=== PATIENT | male | born 1970 | race Caucasian/White ===

== ENCOUNTER 2018-06-22 09:26 | Outpatient (CLI) | payer BC, SELFPAY ==
[2018-06-22 10:11] LABS: Absolute Basophil Count 0.02 k/cumm (0.0-0.2); Absolute Eosinophil Count 0.11 k/cumm (0.0-0.7); Absolute Lymphocyte Count 0.39 k/cumm (1.2-3.4); Absolute Neutrophil Count 3.46 k/cumm (1.2-6.7); Basophils % 0.4; Eosinophils % 2.5; HCT 38.4 % (40.0-50.0); HGB 12.4 g/dL (13.5-17.5); Lymphocytes % 8.7; Mean Corp. HGB Concentration 32.3 g/dL (32.0-36.0); Mean Corpuscular Hemoglobin 28.5 pg (27.0-33.0); Mean Corpuscular Volume 88.3 fL (80-95); Mean Platelet Volume 10.1 fL (8.0-11.0); Monocytes % 11.2; Neutrophils % 77.2; Platelet Count 247 x1000/uL (130-400); RBC 4.35 m/cumm (4.50-6.00); RBC Distribution Width 12.6 % (11.8-14.1); White Blood Cell Count 4.48 k/cumm (4.4-10.8)
== END 2018-06-22 09:46 ==
PROVIDERS: PCP Family Medicine; Visit Provider Psychiatry & Neurology Neurology
DX: G35 Multiple sclerosis (principal)
CPT/HCPCS: 36415; 85025

== ENCOUNTER 2019-03-16 00:31 | Outpatient (CLI) | payer BC, SELFPAY ==
--- NOTE | 2019-03-16 13:44 | DI.MRI_ITS ---
SYMPTOMS/DIAGNOSIS: MULTIPLE SCLEROSIS, CLINICALLY STABLE, G35 MRI OF THE BRAIN: Pre and post contrast examination was performed. Comparison is 02/19/17. There are again seen multiple foci of hyperintense signal in the white matter on the T2 and FLAIR images. These are stable compared to the examination from 02/19/17. Following contrast administration, no enhancement is seen. The ventricles and sulci are consistent with the patient's age. The diffusion weighted images are unremarkable. The susceptibility images show no intracranial hemorrhage. Following contrast administration, no enhancing masses are seen. A normal flow void is seen in the wainwright of [place]. IMPRESSION: Stable white matter lesions compared to 02/19/17. No new or enhancing lesions are identified.
[2019-03-16] MEDS: Normal Saline Flush 10 ML SYR IVP (14:19)
[2019-03-16] MEDS: Gadoterate meglumine 20 ML VIAL 14 ML IVP (14:21)
== END 2019-03-16 00:51 ==
PROVIDERS: PCP Family Medicine; Visit Provider Psychiatry & Neurology Neurology
DX: G35 Multiple sclerosis (principal)
CPT/HCPCS: 70553

== ENCOUNTER 2019-03-31 09:36 | Outpatient (CLI) | payer BC, SELFPAY ==
[2019-03-31 10:01] LABS: Absolute Basophil Count 0.02 k/cumm (0.0-0.2); Absolute Eosinophil Count 0.13 k/cumm (0.0-0.7); Absolute Lymphocyte Count 0.36 k/cumm (1.2-3.4); Absolute Monocyte Count 0.39 k/cumm (0.11-0.7); Absolute Neutrophil Count 2.43 k/cumm (1.2-6.7); Basophils % 0.6; Eosinophils % 3.9; HCT 40.2 % (40.0-50.0); HGB 13.2 g/dL (13.5-17.5); Lymphocytes % 10.8; Mean Corp. HGB Concentration 32.8 g/dL (32.0-36.0); Mean Corpuscular Hemoglobin 28.7 pg (27.0-33.0); Mean Corpuscular Volume 87.4 fL (80-95); Mean Platelet Volume 9.7 fL (8.0-11.0); Monocytes % 11.7; Platelet Count 240 x1000/uL (130-400); White Blood Cell Count 3.33 k/cumm (4.4-10.8)
[2019-03-31 10:53] LABS: ALT 25 U/L (12-78); AST 13 U/L (15-37); Albumin 4.1 g/dL (3.4-5.0); Alkaline Phosphatase 43 U/L (46-116); Anion Gap 6.7 mmol/L (3-11); BUN 18 mg/dL (7-18); Bilirubin, Total 0.3 mg/dL (0.2-1.0); CO2 29.3 mmol/L (21.0-32.0); CREATININE 1.06 mg/dL (0.70-1.30); Chloride 104 mmol/L (98-107); Glucose 109 mg/dL (70-100); Potassium 4.3 mmol/L (3.5-5.1); Sodium 140 mmol/L (136-145)
[2019-04-01 04:41] LABS: Vitamin D 25 Total 70.5 ng/ml (30-100)
[2019-04-04 02:59] LABS: JC Virus DNA, QN <500 copies/mL
== END 2019-03-31 09:56 ==
PROVIDERS: PCP Family Medicine; Visit Provider Psychiatry & Neurology Neurology
DX: G35 Multiple sclerosis (principal)
CPT/HCPCS: 36415; 80053; 82306; 87799; 85025

== ENCOUNTER 2020-04-07 01:20 | Outpatient (CLI) | payer BC, SELFPAY ==
[2020-04-07 10:13] LABS: Abs Immature Grans 0.01 10^3/uL (0.0-0.06); Absolute Basophil Count 0.05 10^3/uL (0.0-0.2); Absolute Eosinophil Count 0.29 10^3/uL (0.0-0.7); Absolute Lymphocyte Count 0.42 10^3/uL (1.2-3.4); Absolute Monocyte Count 0.54 10^3/uL (0.1-0.8); Basophils % 1.3; Eosinophils % 7.4; HCT 40.1 % (40.0-50.0); HGB 13.2 g/dL (13.5-17.5); Immature Grans % 0.3; Lymphocytes % 10.7; MCH 28.6 pg (27.0-33.0); MCHC 32.9 % (32.0-36.0); MCV 86.8 fL (80-95); MPV 9.8 fL (8.0-11.0); Monocytes % 13.7; Neutrophils % 66.6; Nucleated RBC 0 %; Platelet Count 244 10^3/uL (130-400); RBC 4.62 10^6/uL (4.36-5.78); RDW 12.6 % (11.8-14.1); RDW-SD 39.7 fL; WBC 3.94 10^3/uL (4.4-10.8)
[2020-04-07 10:15] LABS: Absolute Neutrophil Count 2.62 10^3/uL (1.2-6.7)
[2020-04-07 11:15] LABS: ALT 25 U/L (16-63); AST 19 U/L (15-37); Albumin 4.1 g/dL (3.4-5.0); Alkaline Phosphatase 55 U/L (46-116); Anion Gap 8.6 mmol/L (3-11); BUN 20 mg/dL (7-18); Bilirubin, Total 0.5 mg/dL (0.2-1.0); CO2 28.4 mmol/L (21.0-32.0); CREATININE 0.94 mg/dL (0.70-1.30); Calcium 9.2 mg/dL (8.5-10.1); Chloride 100 mmol/L (98-107); Glucose 93 mg/dL (74-106); Potassium 4.5 mmol/L (3.5-5.1); Sodium 137 mmol/L (136-145); Total Protein 7.2 g/dL (6.4-8.2)
[2020-04-13 17:56] LABS: JC Virus DNA, QN <500 copies/mL; Source PLASMA
== END 2020-04-07 01:40 ==
PROVIDERS: PCP Family Medicine; Visit Provider Psychiatry & Neurology Neurology
DX: G35 Multiple sclerosis (principal)
CPT/HCPCS: 36415; 80053; 87799; 85025

== ENCOUNTER 2021-05-11 02:38 | Outpatient (CLI) | payer BC, SELFPAY ==
[2021-05-11 15:09] LABS: Abs Immature Grans 0.01 10^3/uL (0.0-0.06); Absolute Basophil Count 0.03 10^3/uL (0.0-0.2); Absolute Eosinophil Count 0.18 10^3/uL (0.0-0.7); Absolute Lymphocyte Count 0.43 10^3/uL (1.2-3.4); Absolute Monocyte Count 0.39 10^3/uL (0.1-0.8); Absolute Neutrophil Count 2.65 10^3/uL (1.2-6.7); Basophils % 0.8; Eosinophils % 4.9; HGB 12.2 g/dL (13.5-17.5); Immature Grans % 0.3; Lymphocytes % 11.7; MCH 28.6 pg (27.0-33.0); MCHC 32.1 % (32.0-36.0); Monocytes % 10.6; Neutrophils % 71.7; Nucleated RBC 0 %; Platelet Count 240 10^3/uL (130-400); RBC 4.27 10^6/uL (4.36-5.78); RDW 12.4 % (11.8-14.1); RDW-SD 40.6 fL; WBC 3.69 10^3/uL (4.4-10.8)
[2021-05-11 15:57] LABS: ALT 24 U/L (16-63); AST 13 U/L (15-37); Albumin 4.1 g/dL (3.4-5.0); Alkaline Phosphatase 54 U/L (46-116); Anion Gap 5.9 mmol/L (3-11); BUN 17 mg/dL (7-18); Bilirubin, Total 0.4 mg/dL (0.2-1.0); CO2 31.1 mmol/L (21.0-32.0); CREATININE 1.1 mg/dL (0.70-1.30); Calcium 9.2 mg/dL (8.5-10.1); Chloride 104 mmol/L (98-107); Glucose 101 mg/dL (74-106); Potassium 4.6 mmol/L (3.5-5.1); Sodium 141 mmol/L (136-145); Total Protein 7.1 g/dL (6.4-8.2)
[2021-05-16 13:24] LABS: JC Virus DNA, QN <500 copies/mL; Source PLASMA
== END 2021-05-11 02:39 | disposition home or self-care (01) ==
LOC: LBO 02:38
PROVIDERS: PCP Family Medicine; Visit Provider Psychiatry & Neurology Neurology
DX: G35 Multiple sclerosis (principal); R53.83 Other fatigue
CPT/HCPCS: 36415; 80053; 87799; 85025

== ENCOUNTER 2021-05-11 03:45 | Outpatient (CLI) | payer BC, SELFPAY ==
--- NOTE | 2021-05-11 15:40 | DI.MRI_ITS ---
Exam(s) MR BRAIN WO EXAM: MR BRAIN WO CLINICAL HISTORY: MS; clinical stable, G35 TECHNIQUE: Multiplanar multisequence MRI of the brain was performed. COMPARISON: MR MRI - BRAIN W/WO CONTRAST from 02/19/2017 FINDINGS: VENTRICLES AND EXTRA AXIAL SPACES: Normal in size and morphology for the patient's age. MIDLINE SHIFT: None. CEREBRAL PARENCHYMA: No focus of restricted diffusion to suggest acute infarct. No space-occupying le johny identified. Overall the white matter lesions seen on the FLAIR and T2 weighted images appears st able compared to 03/16/2019. There does appear to be some increase in size a lesion in the left front al lobe (series 7001, image 17). There also appears to be increase in size of a lesion in the right parietal lobe (series 7001, image 16). There is a hyperintense focus seen in the inferior jo ann which is unchanged compared to an examination from 02/19/2017. HEMORRHAGE: None. BRAINSTEM/CEREBELLUM: Normal. CALVARIUM: Normal. VISUALIZED PARANASAL SINUSES/MASTOIDS:Clear. [place]: Normal flow void. PITUITARY GLAND: Unremarkable. OTHER FINDINGS: None. IMPRESSION: Hyperintense white matter lesions consistent with the patient's known history of multiple sclerosis. A question of slight interval increase in size of lesions in the left frontal and right parietal lob e as described. DATA REPOSITORY:
== END 2021-05-11 04:05 ==
PROVIDERS: PCP Family Medicine; Visit Provider Psychiatry & Neurology Neurology
DX: G35 Multiple sclerosis (principal)
CPT/HCPCS: 70551

== ENCOUNTER → 2022-03-26 02:35 | Outpatient (CLI) | payer BC, SELFPAY ==
--- NOTE | 2022-03-26 15:02 | DI.MRI_ITS ---
Exam(s) MR BRAIN WO EXAM: MR BRAIN WO CLINICAL HISTORY: MS; clinically stable,g35 TECHNIQUE: Multiplanar multisequence MRI of the brain was performed. COMPARISON: MR MR BRAIN WO from 05/11/2021 FINDINGS: VENTRICLES AND EXTRA AXIAL SPACES: Normal in size and morphology for the patient's age. MIDLINE SHIFT: None. CEREBRAL PARENCHYMA: Numerous high signal foci in the white matter some which are in a periventricula r location consistent patient's history of multiple sclerosis. There has been no significant change in size of the lesions appear no new definite new lesions are seen. No focus of restricted diffusion to suggest acute infarct. No space-occupying lesion identified. HEMORRHAGE: None. BRAINSTEM/CEREBELLUM: Stable small focus of high signal in the inferior jo ann. VISUALIZED PARANASAL SINUSES/MASTOIDS:Clear. [place]: Normal flow void. PITUITARY GLAND: Unremarkable. OTHER FINDINGS: None. IMPRESSION: Stable high foci signal in the white matter of both cerebral hemispheres as well as is inferior jo ann, consistent with the patient's history of multiple sclerosis. DATA REPOSITORY:
== END ==
PROVIDERS: PCP Family Medicine; Visit Provider Psychiatry & Neurology Neurology
DX: G35 Multiple sclerosis (principal)
CPT/HCPCS: 70551

== ENCOUNTER 2022-03-26 03:38 | Outpatient (CLI) | payer BC, SELFPAY ==
[2022-03-26 13:48] LABS: Absolute Basophil Count 0.03 10^3/uL (0.0-0.2); Absolute Lymphocyte Count 0.58 10^3/uL (1.2-3.4); Absolute Monocyte Count 0.43 10^3/uL (0.1-0.8); Absolute Neutrophil Count 3.38 10^3/uL (1.2-6.7); Basophils % 0.6; Eosinophils % 4.3; HCT 39.8 % (40.0-50.0); HGB 12.7 g/dL (13.5-17.5); Lymphocytes % 12.6; MCH 28.5 pg (27.0-33.0); MCHC 31.9 % (32.0-36.0); MCV 89 fL (80-95); MPV 9.9 fL (8.0-11.0); Monocytes % 9.3; Neutrophils % 73.2; Platelet Count 225 10^3/uL (130-400); RBC 4.46 10^6/uL (4.36-5.78); RDW 12.5 % (11.8-14.1); RDW-SD 41.1 fL; WBC 4.62 10^3/uL (4.4-10.8)
[2022-03-26 14:25] LABS: ALT 17 U/L (16-63); AST 12 U/L (15-37); Alkaline Phosphatase 47 U/L (46-116); Anion Gap 5.8 mmol/L (3-11); BUN 16 mg/dL (7-18); Bilirubin, Total 0.3 mg/dL (0.2-1.0); CO2 32.2 mmol/L (21.0-32.0); CREATININE 1.1 mg/dL (0.70-1.30); Chloride 106 mmol/L (98-107); Glucose 100 mg/dL (74-106); Potassium 4.5 mmol/L (3.5-5.1); Sodium 144 mmol/L (136-145); Total Protein 7.3 g/dL (6.4-8.2)
[2022-04-03 14:57] LABS: JC Virus DNA, QN PCR See Comments
[2022-04-04 14:18] LABS: Source Plasma
[2022-04-04 14:20] LABS: JC Virus DNA, QN PCR See Comments
== END 2022-03-26 03:39 | disposition home or self-care (01) ==
LOC: LBO 03:38
PROVIDERS: PCP Family Medicine; Visit Provider Psychiatry & Neurology Neurology
DX: G35 Multiple sclerosis (principal)
CPT/HCPCS: 36415; 80053; 87799; 85025

== ENCOUNTER 2022-12-25 15:19 | Outpatient (REF) | payer BC, SELFPAY ==
[2022-12-25 15:40] LABS: Hemoglobin A1C 5.3 % (<5.7)
[2022-12-25 16:02] LABS: Calculated LDL 93 mg/dL (<100); Cholesterol 175 mg/dL (<200); Ferritin 340 ng/mL (26-388); HDL Cholesterol 64 mg/dL (40-60); Triglyceride 91 mg/dL (<150); Vitamin B12 326 pg/mL (193-986)
[2022-12-25 16:38] LABS: Iron 97 ug/dL (65-175); Total Iron Binding Capacity 305 ug/dL (250-450); Transferrin Sat 32 % (20-55)
[2022-12-27 09:42] LABS: Hepatitis C Ab w Rflx HCV PCR Negative (Negative)
[2022-12-27 09:44] LABS: HIV-1/2 Ag & Ab Screen Negative (Negative)
== END 2022-12-25 15:20 | disposition home or self-care (01) ==
LOC: NCHCN 15:19
PROVIDERS: PCP Family Medicine; Visit Provider Family Medicine
DX: Z00.00 Encounter for general adult medical examination without abnormal findings (principal); D64.9 Anemia, unspecified; Z13.1 Encounter for screening for diabetes mellitus; Z13.220 Encounter for screening for lipoid disorders; Z13.21 Encounter for screening for nutritional disorder; Z11.4 Encounter for screening for human immunodeficiency virus [HIV]; Z11.59 Encounter for screening for other viral diseases
CPT/HCPCS: 80061; 86803; 87389; 82607; 82728; 83036; 83540; 83550

== ENCOUNTER 2023-03-21 08:15 | Outpatient (CLI) | payer BC, SELFPAY ==
[2023-03-21 08:37] LABS: Abs Immature Grans 0.01 10^3/uL (0.0-0.06); Absolute Basophil Count 0.03 10^3/uL (0.0-0.2); Absolute Eosinophil Count 0.18 10^3/uL (0.0-0.7); Absolute Lymphocyte Count 0.46 10^3/uL (1.2-3.4); Absolute Monocyte Count 0.38 10^3/uL (0.1-0.8); Absolute Neutrophil Count 2.74 10^3/uL (1.2-6.7); Basophils % 0.8; Eosinophils % 4.7; HCT 39.7 % (40.0-50.0); HGB 12.9 g/dL (13.5-17.5); Immature Grans % 0.3; Lymphocytes % 12.1; MCH 28.7 pg (27.0-33.0); MCHC 32.5 % (32.0-36.0); MCV 88 fL (80-95); MPV 9.4 fL (8.0-11.0); Neutrophils % 72.1; Platelet Count 230 10^3/uL (130-400); RDW 12.5 % (11.8-14.1); RDW-SD 40.5 fL
[2023-03-21 09:00] LABS: ALT 19 U/L (16-63); AST 12 U/L (15-37); Alkaline Phosphatase 49 U/L (46-116); Anion Gap 5.6 mmol/L (3-11); BUN 14 mg/dL (7-18); Bilirubin, Total 0.4 mg/dL (0.2-1.0); CO2 31.4 mmol/L (21.0-32.0); CREATININE 1.2 mg/dL (0.70-1.30); Calcium 9.1 mg/dL (8.5-10.1); Chloride 103 mmol/L (98-107); Estimated GFR 73.22 (mL/min/1.73m2); Glucose 91 mg/dL (74-106); Potassium 4.2 mmol/L (3.5-5.1); Sodium 140 mmol/L (136-145); Total Protein 7.4 g/dL (6.4-8.2)
[2023-03-21 10:26] LABS: Vitamin D 25 Total 58.6 ng/mL (30-100)
[2023-03-27 03:10] LABS: JC Virus DNA, QN PCR NOT DETECTED; JC Virus DNA, QN PCR NOT DETECTED Log IU/mL; Source PLASMA
== END 2023-03-21 08:16 | disposition home or self-care (01) ==
LOC: LBO 08:16
PROVIDERS: PCP Family Medicine; Visit Provider Psychiatry & Neurology Neurology
DX: G35 Multiple sclerosis (principal); N20.0 Calculus of kidney
CPT/HCPCS: 36415; 80053; 82306; 87799; 85025

== ENCOUNTER 2024-01-05 11:32 | Outpatient (REF) | payer BC, SELFPAY ==
[2024-01-05 15:25] LABS: Abs Immature Grans 0.01 10^3/uL (0.0-0.06); Absolute Basophil Count 0.04 10^3/uL (0.0-0.2); Absolute Eosinophil Count 0.17 10^3/uL (0.0-0.7); Absolute Lymphocyte Count 0.46 10^3/uL (1.2-3.4); Absolute Monocyte Count 0.44 10^3/uL (0.1-0.8); Absolute Neutrophil Count 3.97 10^3/uL (1.2-6.7); Basophils % 0.8 %; Eosinophils % 3.3 %; HCT 39.2 % (40.0-50.0); Immature Grans % 0.2 %; MCHC 33.2 % (32.0-36.0); MCV 87 fL (80-95); MPV 10.5 fL (8.0-11.0); Monocytes % 8.6 %; Neutrophils % 78.1 %; Platelet Count 267 10^3/uL (130-400); RBC 4.49 10^6/uL (4.36-5.78); RDW 12.2 % (11.8-14.1); RDW-SD 39.1 fL; WBC 5.09 10^3/uL (4.4-10.8)
[2024-01-05 15:51] LABS: Anion Gap 6.1 mmol/L (3-11); BUN 17 mg/dL (7-18); CO2 29.9 mmol/L (21.0-32.0); CREATININE 1.1 mg/dL (0.70-1.30); Calcium 8.9 mg/dL (8.5-10.1); Chloride 107 mmol/L (98-107); Estimated GFR 80.77 (mL/min/1.73m2); Glucose 99 mg/dL (74-106); Magnesium 1.8 mg/dL (1.8-2.4); Potassium 4.6 mmol/L (3.5-5.1); Sodium 143 mmol/L (136-145); TSH 1.36 uIU/Ml (0.36-3.74)
== END 2024-01-05 11:33 | disposition home or self-care (01) ==
LOC: NCHCN 11:32
PROVIDERS: PCP Family Medicine; Visit Provider Student in an Organized Health Care Education/Training Program
DX: I10 Essential (primary) hypertension (principal)
CPT/HCPCS: 80048; 83735; 84443; 85025

== ENCOUNTER 2024-03-31 14:55 | Outpatient (CLI) | payer BC, SELFPAY ==
--- OUTSIDE RECORDS SUMMARY | 2024-03-31 14:58 | XMS_ITS | Encounter Summary ---
Author Organization [facility] Address [facility] [place] [address] Care Team Providers Care Sales Operations Specialist Name Role Phone Marisol Orona Miguel ROGERS Primary Care Provider Reason for Visit * Reason Comments Multiple Sclerosis Encounter Details Date Type Department Care Team (Late st Contact Info) Description 05/30/2011 9:30 AM EDT [place] [id number] Sreekanth Mauricio MD [facility] [place] [address] Multiple sclerosis (Primary Dx) Discharge Disposition: Home Social History Tobacco Use Types Packs/Day Years Used Date Smoking Tobacco: Never Smokeless Tobacco: Never Alcohol Use Standard Drinks/Week Comments No 0 (1 standard drink = 0.6 oz pur e alcohol) Sex and Gender Information Value Date Recorded Sex Assigned at Not on file Gender Identity Not on file Sexual Orientation Not on file documented as of this encounter Last Filed Vital Signs Vital Sign Reading Time Taken Comments Blood Pressure 143/80 05/30/2011 10:07 AM EDT Pulse 55 05/30/2011 10:07 AM EDT Temperature - - Respiratory Rate - - Oxygen Saturation - - Inhaled Oxygen Concentration - - Weight 117.9 kg (260 lb) 05/30/2011 10:07 AM EDT Height 172.7 cm (5' 8) 05/30/2011 10:07 AM EDT Body Mass Index 39.53 05/30/2011 10:07 AM EDT documented in this encounter Patient Instructions * Patient Instructions* Sreekanth Mauricio MD - 05/30/2011 11:23 AM EDT I think you are doing OK at present. However I do think you should be on treatment for MS and would urge you to do this KOURTNEY. I understand that is the our highest priority at present. You try neurontin for the itchint, one pill 3 times a day. I will see you backin 3 months documented in this encounter Progress Notes * Sreekanth Mauricio MD - 05/30/2011 11:20 AM EDT C:: Multiple sclerosis History: He presented with left visual blurring of vision in 2004 and was diagnosed with optic neuritisHe was found to have MRI abnormalities and was told that he had multiple sclerosis. He started Betaseron but had persistent flulike reactions which prompted sifting to Copaxone.He took Copaxone for 2 yearsbefore she is discontinuing due to injection fatigueLast relapse occurred in March 2010 with symptoms of double vision, dizziness and loss of balance. Restarted Copaxone in April 2010 bud id nottolerate it and is now of all medication. He feels his legs are a bit weaker in the last few months, no other symptoms. 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 He describes intermittent itching in the hands and feet that ocurrs a week at a time and almost sounds like an MS relapse. MEDICATIONS: AMBULATORY MEDICATIONS: In electronic record PHYSICAL EXAM: General: The patient appears well, not in distress. HEENT: [place] palpebral conjunctivae, anicteric sclerae, no tonsillo-pharyngeal congestion, supple neck, no cervical adenopathy. Cardiovascular: Heart rate is regular. No murmur, rub or gallops appreciated. Respiratory: Clear to auscultation. Abdomen: Soft, nontender. Extremities: No significant abnormalities, but left hand injury recently. Spine: No abnormality noted. Skin: Warm and moist to touch Mental Status: The patient is alert and oriented x 3. Speech is fluent without paraphasic errors orperseveration. Attention, concentration, and recall are all normal. Cranial Nerves II-XII: Visual faust are intact to confrontation. Pupils are equal, reactive to light and accommodation. Ocular movements are intact without nystagmus. Facial sensation is normal. Facial movements are symmetric. Gag reflex was not tested but uvula rises symmetrically. Sternocleidomastoid and trapezius muscle are 5/5 in strength. Tongue protrusion is midline. Motor: Patient has normal motor bulk and tone. Upper and lower extremity strength is 5/5 throughout, but left le LE seems weaker than the right, proximal and distal muscle groups. Sensation: Normal touch sensation. Coordination: Finger to nose finger testing is normal. Rapid alternating movements are normal. Gait: The patient has normal gait and able to tandem. Negative Romberg. DTR: 3+, 4+ ankles with clonus. No Babinski sign ASSESSMENT AND PLAN: Mr. Echavarria is a 39-year-old man with relapsing multiple sclerosis. His most recent relapse was in March 2010, but iasuspect the episodes of iching and the Left LE weakness and the brisk reflexes represent some worsening of his condition. His last MRI from April 2010 showed a lot of new lesions. I counseled him again regarding the need for immunomodulatory therapy and he is in agreement. Sincehe had a lot of injection reactions with both interferons and the tremor, and bad reactions to copaxone. it would be appropriate to use fingolimod. We discussed the benefits of fingolimod and its associated side effects. He would also be a candidate for the Daclizumab study protocol. However he is still reluctant to proceed because of concerns about . His is actively trying to get . I will see him back in 4 months. I recommended a trial of neurontin for the itching. documented in this encounter Plan of Treatment Not on file documented as of this encounter Visit Diagnoses Diagnosis Multiple sclerosis- Primary documented in this encounter Care Teams Sales Operations Specialist Relationship Specialty Start Date End Date Marisol Orona APRN [address] [place] [address] PCP - General 07/10/10 08/17/18 documented as of this encounter
--- OUTSIDE RECORDS SUMMARY | 2024-03-31 14:58 | XMS_ITS | Encounter Summary ---
[place] [address] Care Team Providers Care Fuel Tank Sealer And Tester Name Role Phone Edmundo Gillespie MD Primary Care Provider [phone] Reason for Referral * Consultation (Routine) - Authorized Specialty Diagnoses / Procedures Referred By Contfaviola t Referred To Contact Neurology Diagnoses Multiple sclerosis Sue Lundberg MD [facility] [address] [place] [address] [facility] [address] [place] [phone] Referral ID Status Reason Start Date Expiration Date Visits Requested Visits Authorized [id number] Authorized Second Opinion PCP Updated and/or Approved 09/26/2023 09/25/2024 6 6 Encounter Details Date Type Department Care Team (Late st Contact Info) Description 09/26/2023 Transcribe Orders eD Incoming Referrals [phone] Sue Lundberg MD [facility] [address] [place], [place] [id number] Multiple sclerosis Social History Tobacco Use Types Packs/Day Years Used Date Smoking Tobacco: Never Smokeless Tobacco: Never Alcohol Use Standard Drinks/Week Comments No 0 (1 standard drink = 0.6 oz pur e alcohol) Sex and Gender Information Value Date Recorded Sex Assigned at Not on file Gender Identity Not on file Sexual Orientation Not on file documented as of this encounter Plan of Treatment Scheduled Referrals Name Type Priority Associated Diagnoses Orde r Schedule Referral to Neurology Outpatient Referral Routine Multiple sclerosis Ordered: 09/26/2023 documented as of this encounter Visit Diagnoses Diagnosis Multiple sclerosis documented in this encounter Care Teams Fuel Tank Sealer And Tester Relationship Specialty Start Date End Date Edmundo Gillespie MD [address] [place] [address] PCP - General Family Medicine 09/26/23 documented as of this encounter
--- OUTSIDE RECORDS SUMMARY | 2024-03-31 14:58 | XMS_ITS | Encounter Summary ---
Author Organization [facility] [place] [address] Care Team Providers Care Room Service Food Server Name Role Phone Yeyo Marisol Rivera APRN Primary Care Provider Reason for Visit * Reason Comments Hand Pain finger laceration Encounter Details Date Type Department Care Team (Late st Contact Info) Description 05/18/2011 4:14 PM EDT - 05/18/2011 10:25 PM EDT [place] [address] Pj Saravia MD [facility] [place] [address] Laceration of finger; Open wound of finger(s) , without mention of complication Discharge Disposition: Home Social History Tobacco Use Types Packs/Day Years Used Date Smoking Tobacco: Never Assessed Sex and Gender Information Value Date Recorded Sex Assigned at Not on file Gender Identity Not on file Sexual Orientation Not on file documented as of this encounter Last Filed Vital Signs Vital Sign Reading Time Taken Comments Blood Pressure 141/79 05/18/2011 10:00 PM EDT Pulse 76 05/18/2011 10:00 PM EDT Temperature 36.8 ??C (98.2 ??F) 05/18/2011 10:00 PM E DT Respiratory Rate 20 05/18/2011 10:00 PM EDT Oxygen Saturation 98% 05/18/2011 10:00 PM EDT Inhaled Oxygen Concentration - - Weight - - Height - - Body Mass Index - - documented in this encounter Discharge Instructions * Patient Instructions* Jos Hernandez MD - 05/18/2011 9:41 PM EDT Orthopaedic Home Care Instructions Care of Your injury Below are general guidelines to follow after treatment. If you have any questions after reading this sheet, please call us. 1. INJURY: left index, middle, ring finger lacerations and fracture Activity Keep your cast/splint clean and dry. For the first 72 hours, keep your injured extremity raised as much as possible. You may sit in a chair or in bed with your injured extremity raised above the level of the heart (???toes above the nose?? for a leg injury). Use blankets and/or pillows to help. You may leave the bed or chair to use the bathroom or to eat. DO NOT allow the injured extremity to dangle or excessive swelling and pain will develop. No ice. Keep the dressing clean and dry, you may reinforce it with gauze if needed, there is no need to remove the dressing before your appointment. Days 4-7, you may increase activities but only do what is absolutely necessary! You will have less pain and swelling if you CONTINUE TO RAISE YOUR INJURED EXTREMITY. Too much activity will result in discomfort and swelling, and may slow healing. You will be much happier later if you follow activityrestrictions. Less is better for the first week! Weight-bearing status: no weight bearing with left hand 2. Prescriptions Adults You were given a prescription for dilaudid: take one - two tablets every 4 to 6 hours as needed. They can be constipating, so we recommend also taking a stool softener such as Colace 100mg 2x/day. Stop the stool softener if you develop diarrhea. Tylenol and ibuprofen as directed are also fine. You should find yourself needing less and less pain medication after the first few days. Take your pain medicine as directed. Take any of your other usual medicines as directed. 3. Please contact us if: You have excessive swelling. You feel excessive pain You develop new numbness or tingling Your cast/splint is too tight. If you have any questions or concerns, please call the following: Orthopaedic Clinic Friday thru Friday 8am - 5pm (see below) Orthopaedic Physician injection mold technician --After 5pm and Weekends [phone] We are interested in your prompt and healthy recovery. Please follow the above instructions. Please call the office (at number below) to verify your post fracture appointment, typically the following day or Friday if you injure yourself over the weekend. Your care today was provided by JOS HERNANDEZ MD Follow up in ~7 days will be arranged in the following orthopaedic clinic [facility] orthopedic [facility] [phone] documented in this encounter Medications at Time of Discharge Medication Sig Dispensed Refills Start Date End Date HYDROmorphone (DILAUDID) 2 mg tablet Take 1-2 tablets by mouth every 4 hours as needed for Pain. 50 tablet 0 05/18/2011 cephALEXin (KEFLEX) 500 mg capsule Take 1 capsule by mouth 4 times daily for 10 days. 40 capsule 0 05/18/2011 05/28/2011 documented as of this encounter ED Notes * Radha Timmons RN - 05/18/2011 9:30 PM EDT Procedure completed. Patient hand wrapped per MD. Patient tolerate well. * Radha Timmons RN - 05/18/2011 9:01 PM EDT Ortho at bedside with procedure. Voices no needs at this time. Patient tolerating well. * Radha Timmons RN - 05/18/2011 8:20 PM EDT Ortho at bedside for block. Medicated with Zofran, Dilaudid on standby if needed. Voices no other needs at this time. * Radha Timmons RN - 05/18/2011 7:41 PM EDT Orthopedics at bedside. * Radha Timmons RN - 05/18/2011 7:30 PM EDT Care resumed, Patient lying in bed with family at bedside. Is A & O x3, states pain to Left hand 3 middle fingers with slight pain, 2/10. States is very tolerable and does not need anything else for pain. VSS. Call light within reach, voices no needs at this time. Patient in NAD. * Kavita Dooley RN - 05/18/2011 6:27 PM EDT Morphine ordered but pt refuses It makes me sick. * Kavita Dooley RN - 05/18/2011 5:45 PM EDT Care assumed. Fingers are wrapped with DSD Ortho called. Pt appear NAD documented in this encounter Miscellaneous Notes * Consult Note - Jos Hernandez MD - 05/18/2011 9:47 PM EDT ORTHOPAEDIC EMERGENCY ROOM CONSULT NOTE We were asked to see this patient by [facility] Emergency Department. CHIEF COMPLAINT: Left index, middle, and ring finger lacerations. HISTORY OF PRESENT ILLNESS: Kaitlynn is a 40-year-old male who presented to the ED at [facility] earlier today after lacerating his fingers with a table saw. The index and middle fingers were repaired by the outside hospital; however, they were uncomfortable repairing the ring finger, and he was transferred to our hospital for further care. He did receive Ancef and tetanus at the outside hospital PAST MEDICAL HISTORY: Migraines and multiple sclerosis. PAST SURGICAL HISTORY: None. MEDICATIONS: None. ALLERGIES: PREDNISONE. PHYSICAL EXAMINATION: Vital Signs: Stable. No acute distress. Left Hand: There is a full-thickness laceration of 2 cm over the left middle finger distal phalanx oblique to the nail, which has been sutured with nylon. There is an also full-thickness laceration of approximately 1 cm on the left index finger near the nail, also sutured and closed with nylon. Both of these fingers appeared to have intact distal capillary refill and intact sensation. The left ring finger has a large ulnar chunk missing including a portion of the distal phalanx. The distal tip of the finger remains with a small tract connecting it to the more proximal portion. He is able to flex the DIP and PIP on these three fingers. He is able to flex and extend the wrist and fire EPL and APL. His golf course mechanic and interossei are intact. 90% of the nail bed on the ring finger was missing. X-RAYS: Three views of the hand demonstrate a proximal oblique nondisplaced fracture of the middle finger distal phalanx, which is intraarticular. The x-ray also shows on the ring finger a significant ulnar-sided bone having a chunk of the distal phalanx has been removed. The distal tip of the distal phalanx remains in the skin tissues. PROCEDURE: After the left hand was sterilely prepped, a lidocaine digital block was administered and the wound was irrigated with 1 L of normal saline. The wound was resterilized using Betadine prep. The hand was then sterilely dressed, a tourniquet was placed, a rongeur was used to remove the bone fragment and to cut the bone back to a clean transverseline. The skin was debrided back to healthy tissue. The remaining nail was removed and the germinal matrix was excised. The distal skin flap was then used to reapproximate and cover the remaining wound. The skin came together nicely and was not under significant tension. 5.0 chromic was used for the repair. After the repair, the tourniquet was removed and Xeroform was placed over the suture and incision as well as the middle and index fingers. A sterile dressing was then placed and a volar splint was made. ASSESSMENT AND PLAN: Mr. Kaitlynn Echavarria is a 40-year-old male, status post lacerations to the left middle, index, and ring fingers with significant loss of the left ring finger. He is being discharged with a prescription for Keflex and Dilaudid. He will follow with us in one week. He will keep the splint on as well as the dressing until his followup. He has been instructed to reinforce the dressing as needed and to elevate the extremity. * Miscellaneous - Provider, Scanning - 05/18/2011 8:34 PM EDT * ED Triage - Heather Anne - 05/18/2011 4:40 PM EDT S: pt to ED referred from [facility] to be treated for finger lacerations, avulsion with bone involvement secondary to injuring Left three middle fingers this morning on a table saw O: pt presents with records from originating hospital, left three middle fingers dressed documented in this encounter Plan of Treatment Not on file documented as of this encounter Visit Diagnoses Diagnosis Laceration of finger Open wound of finger(s) , without mention of complication Open wound of finger(s) , without mention of complication documented in this encounter Administered Medications Inactive Administered Medications - up to 3 most recent administrations Medication Order MAR Action Action Date Dose Rate Site HYDROmorphone (PF) (DILAUDID) 2 mg/mL injection 1 mg 1 mg, Intravenous, ONCE, 1 dose, On 05/18/11 at 1900, Routine Given 05/18/2011 6:55 PM EDT 1 mg documented in this encounter Active and Recently Administered Medications Times are shown in EDT. Scheduled Medication Order 05/16/2011 05/17/2011 05/18/2011 HYDROmorphone (PF) (DILAUDID) 2 mg/mL injection 1 mg (COMPLETED) 1 mg, Intravenous, ONCE, 1 dose, On 05/18/11 at 1900, Routine 1855 (Given - Provid er: Kavita Dooley RN) documented in this encounter Care Teams Room Service Food Server Relationship Specialty Start Date End Date Marisol Orona APRN [address] [place] [address] PCP - General 07/10/10 08/17/18 documented as of this encounter
--- OUTSIDE RECORDS SUMMARY | 2024-03-31 14:58 | XMS_ITS | Encounter Summary ---
Author Organization [facility] Address [facility] [place] [address] Care Team Providers Care Senior Erp Consultant Name Role Phone Marisol Orona APRN Primary Care Provider Reason for Visit * Reason Onset Date Comments Other 12/26/2010 Back Pain Encounter Details Date Type Department Care Team (Late st Contact Info) Description 12/26/2010 [place] [phone] Noe Sandoval MD [facility] [place] [address] Other (Back Pain) Social History Tobacco Use Types Packs/Day Years Used Date Smoking Tobacco: Never Assessed Sex and Gender Information Value Date Recorded Sex Assigned at Not on file Gender Identity Not on file Sexual Orientation Not on file documented as of this encounter Miscellaneous Notes * Telephone Encounter - Noe Sandoval MD - 12/26/2010 3:49 PM EDT Agree with plan to see PCP. * Telephone Encounter - Fozia Macias RN - 12/26/2010 1:56 PM EDT Nurse spoke with patient who reports the following: ?? Awoke today with lower back pain..feels like it wants to cramp, can't get comfortable.,pain radiating down left leg ?? Hx of Kidney stone 1.5 months ago although denies hematuria,dysuria etc ?? 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 Has appt with PCP tomorrow [address] ?? Off all medications, stopped Provigil and Copaxone last year, is attempting to get and he doesn't want to take anything ?? Last MS Flare was March 2011 tx with IV Steroids for 3 days Nurse requested patient keep us informed of recommended tx form PCP and that I would make Dr Sandoval aware of complaints documented in this encounter Plan of Treatment Not on file documented as of this encounter Visit Diagnoses Not on filedocumented in this encounter Care Teams Senior Erp Consultant Relationship Specialty Start Date End Date Marisol Orona, SUE [address] [place] [address] PCP - General 07/10/10 08/17/18 documented as of this encounter
--- OUTSIDE RECORDS SUMMARY | 2024-03-31 14:58 | XMS_ITS | Encounter Summary ---
Author Organization [facility] Address [address] [place] [address] Care Team Providers Care Site Safety Manager Name Role Phone Unavailable Primary Care Provider Unavailabl e Encounter Details Date Type Department Care Team (Late st Contact Info) Description 12/26/2022 Lab Requisition [facility] Pathology & Laboratory Medicine - [facility] [address] [place] [address] Outr Resulting Lab, Provider Social History Tobacco Use Types Packs/Day Years Used Date Smoking Tobacco: Never Assessed Sex and Gender Information Value Date Recorded Sex Assigned at Not on file Gender Identity Not on file Sexual Orientation Not on file documented as of this encounter Plan of Treatment Not on file documented as of this encounter Procedures Procedure Name Priority Date/Time Associated Diagnosis Comments HEPATITIS C AB W REFLEX TO HCV RNA BY PCR Routine 12/25/2022 10:00 EDT documented in this encounter Results * HEPATITIS C AB W REFLEX TO HCV RNA BY PCR (12/25/2022 10:00 EDT) Hep C Antibody Negative Negative 12/27/2022 9:38 EDT [facility] Blood VENOUS BLOOD / Unknown 12/25/2022 10:00 EDT 12/26/2022 17:52 EDT Provider Outr Resulting Lab CHEMISTRY & BLOOD GAS ORDERABLES [facility] [address] [place] [address] documented in this encounter Visit Diagnoses Not on filedocumented in this encounter
--- OUTSIDE RECORDS SUMMARY | 2024-03-31 14:58 | XMS_ITS | Encounter Summary ---
Author Organization [place] [address] Care Team Providers Care Registered Nurse Teacher Name Role Phone Edmundo Gillespie MD Primary Care Provider [phone] Reason for Visit * Consultation (Routine) - Authorized Specialty Diagnoses / Procedures Referred By Contfaviola t Referred To Contact Neurology Diagnoses Multiple sclerosis Sue Lundberg MD [facility] [place] [id number] [place] [address] [facility] [address] [place] [phone] Referral ID Status Reason Start Date Expiration Date Visits Requested Visits Authorized [id number] Authorized Second Opinion PCP Updated and/or Approved 09/26/2023 09/25/2024 6 6 Encounter Details Date Type Department Care Team (Late st Contact Info) Description 02/20/2024 3:00 PM EDT TH Visit (TeleHealth) [place] [address] Eber Hickman MD [facility] [place] [address] Multiple sclerosis Social History Tobacco Use Types Packs/Day Years Used Date Smoking Tobacco: Never Smokeless Tobacco: Never Alcohol Use Standard Drinks/Week Comments No 0 (1 standard drink = 0.6 oz pur e alcohol) Sex and Gender Information Value Date Recorded Sex Assigned at Not on file Gender Identity Not on file Sexual Orientation Not on file documented as of this encounter Progress Notes * Eber Hickman MD - 02/20/2024 3:00 PM EDT [id number] 37 minutes + 10 minutes EMR documentation Sue Lundberg MD Dear Dr.van Irizarry, Thank you for asking me to consult on your patient, Kaitlynn Echavarria, a 53 yo man with MS. He was unaccompanied on this Telehealth visit. HPI-There are no recent [facility] neurology notes on this patient. Sreekanth Mauricio saw him 13 years ago and documented the following: History: He presented with left visual blurring of vision in 2004 and was diagnosed with optic neuritis.He was found to have MRI abnormalities and was told that he had multiple sclerosis by . He had an LP and the CSF was apparently consistent with MS. He started Betaseron but had persistent flulike reactions which prompted sifting to Copaxone.He took Copaxone for 2 years before she is discontinuing due to injection fatigue. Last relapse occurred in March 2010 with symptoms of double vision, dizziness and loss of balance. Restarted Copaxone in April 2010 bud id not tolerate it and is now of all medication. He feels his legs are a bit weaker in the last few months, no other symptoms. 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 He describes intermittent itching in the hands and feet that ocurrs a week at a time and almost sounds like an MS relapse. .... PHYSICAL EXAM: General: The patient appears well, not in distress. HEENT: Storla palpebral conjunctivae, anicteric sclerae, no tonsillo-pharyngeal congestion, [...] His is actively trying to get . [facility] does not have records after that except for: - a referral note that mentions that he is having trouble affording Gilenya and wants to either switch to a medication with lower cost or go off DMTs. He is not adherent to qd Gilenya, but is taking it every 2-3 days. -a recent note by you that states that you had switched him to qod dosing for Gilenya. There are references in the record to a low ANC and to a bout of shingles while on Gilenya. The patient states that he thought he heard you saying that it is OK to switch to every 3rd day dosing and that is how he is taking it now. The patient states that he had an attack more recently than 2009 when his father and brother within a short period of time and he was under a lot of stress. His description of the episode make it unclear whether it was a new event or a pseudorelapse since his symptoms were visual, I.e. similarto his original attack. Imaging: MRIs of the brain from 2020 and 2021 showing no new lesions; these were compared to MRI brain in 2017. Impression: The data available on stopping DMTs in older people has generally been on studies of MSpatients older than , I.e. the DISCO-MS study was in patients older than 55. In addition, the patient expressed to me that he wishes the risk of getting an MS attack to be zero since he needs to be continuing to work to make a living and fears that an attack will put him out of work. However, I told him that the risk of getting another attack, after Gilenya is tapered off, is very low given the facts that he has been very stable, and the current dose he is on, I.e. every 3 days, is very low and possibly not significantly protective. Plus, starting a new medication may have risks of its own. So, the calculus here is complex. I told him he will need to think this over and meet with you so that both of you can make a decision together weighing the benefits and risks. Since he has been stable on q3d fingolimod, the two of you will need to decide whether the financial benefits of stopping fingolimod are worth the risk of new activity or adverse effects on a new DMT. He also mentioned that there is a concern about being on fingolimod for an extended period of time, but this should not be a major consideration especiallyat the very low dose he is currently on. A izjsjt-th-tzg-road solution might be to continue q3d fingolimod for another 3 years and taper it off when he turns 56. Thank you for asking me to consult on this very nice man,and I'll be happy to see him again in the future should you think that is indicated. Sincerely, MD Brady Damon Professor of Neurology Department of Neurology [facility] [employer] and [address] [address] At least 25 minutes of this 37 minute Telehealth visit were spent in discussion of the topics outlined in the note above including diagnosis, therapy, and management issues. documented in this encounter Plan of Treatment Scheduled Referrals Name Type Priority Associated Diagnoses Orde r Schedule Referral to Neurology Outpatient Referral Routine Multiple sclerosis Ordered: 09/26/2023 documented as of this encounter Visit Diagnoses Diagnosis Multiple sclerosis documented in this encounter Care Teams Registered Nurse Teacher Relationship Specialty Start Date End Date Edmundo Gillespie MD [address] [place] [address] PCP - General Family Medicine 09/26/23 documented as of this encounter
--- OUTSIDE RECORDS SUMMARY | 2024-03-31 14:58 | XMS_ITS | Encounter Summary ---
Author Organization [facility] [place] [address] Care Team Providers Care Inspector Final Assembly Conveyor Line Name Role Phone Unknown Primary Care Provider Unavailabl e Encounter Details Date Type Department Care Team (Late st Contact Info) Description 05/11/2021 Ancillary Procedure [place] [address] Edmundo Gillespie MD [facility] [place] [address] Social History Tobacco Use Types Packs/Day Years [...] Procedure Name Priority Date/Time Associated Diagnosis Comments FILM LIBRARY STORAGE ONLY MR HEAD Routine 05/11/2021 12:00 AM EDT documented in this encounter Results * Film Library- Storage Only MR Head (05/11/2021 12:00 AM EDT) Narrative PRATIBHA - 11/20/2023 4:15 PM EDT This exam is auto-finalizing. It's purpose is for storage only. Edmundo Gillespie MD [facility] FILM LIBRARY ORD ERABLES [place], [place] documented in this encounter Visit Diagnoses Not on filedocumented in this encounter Care Teams Inspector Final Assembly Conveyor Line Relationship Specialty Start Date End Date Unknown None PCP - General 08/18/18 09/25/23 documented as of this encounter
--- OUTSIDE RECORDS SUMMARY | 2024-03-31 14:58 | XMS_ITS | Encounter Summary ---
Author Organization [facility] [place] [address] Care Team Providers Care Cardroom Worker Name Role Phone Unknown Primary Care Provider Unavailabl e Encounter Details Date Type Department Care Team (Late st Contact Info) Description 03/26/2022 Ancillary Procedure [place] [address] Edmundo Gillespie MD [facility] [place] [address] Social History Tobacco Use Types [...] FILM LIBRARY STORAGE ONLY MR HEAD Routine 03/26/2022 12:00 AM EDT documented in this encounter Results * Film Library- Storage Only MR Head (03/26/2022 12:00 AM EDT) Narrative PRATIBHA - 11/20/2023 4:15 PM EDT This exam is auto-finalizing. It's purpose is for storage only. Edmundo Gillespie MD [facility] FILM LIBRARY ORD ERABLES [place], [place] documented in this encounter Visit Diagnoses Not on filedocumented in this encounter Care Teams Cardroom Worker Relationship Specialty Start Date End Date Unknown None PCP - General 08/18/18 09/25/23 documented as of this encounter
--- OUTSIDE RECORDS SUMMARY | 2024-03-31 14:58 | XMS_ITS | Encounter Summary ---
Author Organization [facility] Address [address] [place] [address] Care Team Providers Care Patient Accounts Coordinator Name Role Phone Unavailable Primary Care Provider Unavailabl e Encounter Details Date Type Department Care Team (Late st Contact Info) Description 12/26/2022 Lab Requisition [facility] Pathology & Laboratory Medicine - [facility] [address] [place], [place] [address] Outr Resulting Lab, Provider Social History Tobacco [...] Procedure Name Priority Date/Time Associated Diagnosis Comments HIV 1/2 ANTIGEN AND ANTIBODY, 4TH GENERATION Routine 12/25/2022 10:00 EDT documented in this encounter Results * HIV 1/2 ANTIGEN AND ANTIBODY, 4TH GENERATION (12/25/2022 10:00 EDT) HIV 1 and 2 Antibody/p24 Antigen, 4th Generation Negative Negative 12/27/2022 9:40 EDT [facility] Comment:If acute HIV-1 infec tion is suspected in a high risk patient, submit plasma specimen for HIV-1 RNA quantitation test. Blood VENOUS BLOOD / Unknown 12/25/2022 10:00 EDT 12/26/2022 17:52 EDT Narrative [facility] - 12/27/2022 9:40 EDT Fourth Generation assay performed on the Siemens Centaur XPT. Provider Outr Resulting Lab IMMUNOLOGY A ND SEROLOGY ORDERABLES [facility] [address] [place] [address] documented in this encounter Visit Diagnoses Not on filedocumented in this encounter
--- OUTSIDE RECORDS SUMMARY | 2024-03-31 14:58 | XMS_ITS | Encounter Summary ---
Author [facility] [place] [address] Care Team Providers Care Broach Operator Name Role Phone Marisol Orona APRN Primary Care Provider Encounter Details Date Type Department Care Team (Late st Contact Info) Description 09/12/2010 12:30 PM EST [place] [address] Noe Sandoval MD [facility] [place] [address] Discharge Disposition: Home Social History Tobacco Use [...] on filedocumented in this encounter Care Teams Broach Operator Relationship Specialty Start Date End Date Marisol Orona APRN [address] [place] [address] PCP - General 07/10/10 08/17/18 documented as of this encounter
--- OUTSIDE RECORDS SUMMARY | 2024-03-31 14:58 | XMS_ITS | Referral Summary ---
Author Organization [facility] Address [address] [place] [address] Care Team Providers Care Edge Grinder Name Role Phone Unavailable Primary Care Provider Unavailabl e Social History Tobacco Use Types Packs/Day Years Used Date Smoking Tobacco: Never Assessed Sex and Gender Information Value Date Recorded Sex Assigned at Not on file Gender Identity Not on file Sexual Orientation Not on file Plan of Treatment Not on file Procedures Procedure Name Priority Date/Time Associated Diagnosis Comments HEPATITIS C AB W REFLEX TO HCV RNA BY PCR Routine 12/25/2022 10:00 EDT from Last 3 Months or Most Recently Relevant to Health Maintenance Results * HEPATITIS C AB W REFLEX TO HCV RNA BY PCR (12/25/2022 10:00 EDT) Hep C Antibody Negative Negative 12/27/2022 9:38 EDT [facility] Blood VENOUS BLOOD / Unknown 12/25/2022 10:00 EDT 12/26/2022 17:52 EDT Provider Outr Resulting Lab CHEMISTRY & BLOOD GAS ORDERABLES [facility] [address] [place] [address] from Last 3 Months or Most Recently Relevant to Health Maintenance
--- OUTSIDE RECORDS SUMMARY | 2024-03-31 14:58 | XMS_ITS | Encounter Summary ---
Author Organization [facility] Address [facility] [place] [address] Care Team Providers Care Clinical Product Manager Name Role Phone Yeyo Marisol Rivera APRN Primary Care Provider Reason for Visit * Reason Comments Wound Check laceration left midd le finger Encounter Details Date Type Department Care Team (Late st Contact Info) Description 06/20/2011 11:40 AM EDT Office [place] [address] Varun Simental PA [facility] DR [place] [address] Finger amputation, traumatic, left ring, DOI may 28 (Primary Dx) Discharge Disposition: Home Social History [...] as of this encounter Progress Notes * Varun Simental PA - 06/20/2011 12:15 PM EDT DATE OF SERVICE: 06/20/2011 ATTENDING PHYSICIAN: Jaron Moses M.D. Kaitlynn is here for follow up of his left ring finger distal tip amputation. He is doing well. He denies fevers or chills. He does have some mild dysesthesia seizure in the distal aspect of his finger, but otherwise he is quite sensate. There is no evidence of complications. The biological bandage i.e., the skin flap was easily trimmed back today. The wound is healing quite kindly, but secondary intention. There does not appear to be any issue or complication. ASSESSMENT: He is one-month status post traumatic tip amputation of the left ring finger. Half-strength peroxide soaks. Return in one-month for follow up with starting therapy for stump modification, edema control, and desensitization. I have explained this to him. He understands and agrees, and he will return. documented in this encounter Plan of Treatment Not on file documented as of this encounter Visit Diagnoses Diagnosis Finger amputation, traumatic, left ring, DOI may 28- Primary Traumatic amputation of other finger(s) (complete) (partial), without mention of complication documented in this encounter Care Teams Clinical Product Manager Relationship Specialty Start Date End Date Marisol Orona APRN [address] [place] [address] PCP - General 07/10/10 08/17/18 documented as of this encounter
--- OUTSIDE RECORDS SUMMARY | 2024-03-31 14:58 | XMS_ITS | Encounter Summary ---
Author Organization [facility] Address [address] [place] [address] Care Team Providers Care Ticketer Name Role Phone Unavailable Primary Care Provider Unavailabl e Encounter Details Date Type Department Care Team (Late st Contact Info) Description 12/18/2004 Results Only [facility] [address] [place] [address] Tyra Wallace MD [address] [place], [place] [id number] Social History Tobacco Use Types Packs/Day Years Used Date Smoking Tobacco: Never Assessed Sex and Gender Information Value Date Recorded Sex Assigned at Not on file Gender Identity Not on file Sexual Orientation Not on file documented as of this encounter Plan of Treatment Not on file documented as of this encounter Procedures Procedure Name Priority Date/Time Associated Diagnosis Comments CYTOPATHOLOGY Routine 12/18/2004 0:00 EDT documented in this encounter Results * CYTOPATHOLOGY (12/18/2004 0:00 EDT) Pathology Report: CYTOPATHOLOGY REPORT Reports generated via electronic interface contain original data; however they are lacking the format of the original report. Caution should be taken when reading/interpreti ng unformatted reports. Name: ? KAITLYNN ECHAVARRIA ? Accession #: ? [id number] : ? 1970 (Age: 34) ??M ?Collect Date: ? 12/18/2004 Location: ? [facility] ? Receive Date: ? 12/19/2004 Provider: ? TYRA WALLACE MD Copy to: ? CYTOLOGIC DIAGNOSIS: ? Cerebrospinal fluid, cytologic evaluation: 1. ?No malignant cells identified. 2. ?Sparse lymphocytes and monocytes present. Document reviewed and electronically signed by: ? Lorna Brumfield MD PhD Report Date: ??12/20/2004 15:37 By the signature above, the attending physician certifies that he/she has personally conducted a gross and/or microscopic examination of the described specimens and rendered or confirmed the above diagnosis. Specimen Type: ? Cerebrospinal Fluid Clinical History: ? Possible MS, optic neuritis ? Gross Description: ? .5cc' s of clear, colorless fluid were received and processed by selective cellular enhancement technique. ? End of Report EDILBERTO CLINTON 12/18/2004 12/19/2004 13: 31 EDT Tyra Wallace MD PATHOLOGY ORDERABLES Performing Organization Address City/State/[facility] Co de Phone Number EDILBERTO CLINTON [address] [place] [address] documented in this encounter Visit Diagnoses Not on filedocumented in this encounter
--- OUTSIDE RECORDS SUMMARY | 2024-03-31 14:58 | XMS_ITS | Clinical Summary ---
[place] [address] Care Team Providers Care Formwork Carpenter Name Role Phone Edmundo Gillespie MD Primary Care Provider [phone] Allergies Active Allergy Reactions Criticality Noted Date Comments Cephalexin (Bulk) Medium 05/30/2011 Mouth sores Morphine (Bulk) Nausea And Vomiting High 05/30/2011 Prednisone Medium Flushing, Parasthesias, Tachycardia Medications Medication Sig Dispensed Refills Start Date End Date Status HYDROmorphone (DILAUDID) 2 mg tablet Take 1-2 tablets by mouth every 4 hours as needed for Pain. 50 tablet 0 05/18/2011 Active gabapentin (NEURONTIN) 300 mg capsule Take 1 capsule by mouth 3 times daily. 90 capsule 11 05/30/2011 Active Active Problems Problem Noted Date Diagnosed Date Finger amputation, traumatic, left ring, DOI [address] 11 05/30/2011 Multiple sclerosis 05/30/2011 Encounters Date Type Department Care Team Description 02/20/2024 3:00 PM EDT TH Visit (TeleHealth) [place] [address] Eber Hickman MD Multiple sclerosis from Last 3 Months Social History Tobacco Use Types Packs/Day Years Used Date Smoking Tobacco: Never Smokeless Tobacco: Never Alcohol Use Standard Drinks/Week Comments No 0 (1 standard drink = 0.6 oz pur e alcohol) Sex and Gender Information Value Date Recorded Sex Assigned at Not on file Gender Identity Not on file Sexual Orientation Not on file Last Filed Vital Signs Vital Sign Reading Time Taken Comments Blood Pressure 143/80 05/30/2011 10:07 AM EDT Pulse 55 05/30/2011 10:07 AM EDT Temperature 36.8 ??C (98.2 ??F) 05/18/2011 10:00 PM E DT Respiratory Rate 20 05/18/2011 10:00 PM EDT Oxygen Saturation 98% 05/18/2011 10:00 PM EDT Inhaled Oxygen Concentration - - Weight 117.9 kg (260 lb) 05/30/2011 10:07 AM EDT Height 172.7 cm (5' 8) 05/30/2011 10:07 AM EDT Body Mass Index 39.53 05/30/2011 10:07 AM EDT Plan of Treatment Health Maintenance Due Date Last Done Comments CT Colonography 1971 Colonoscopy 1971 Colorectal Cancer Screening 1971 FIT DNA 1971 FIT 1971 Sigmoidoscopy (10 year) with FIT yearly 1971 Sigmoidoscopy 1971 HIV screen 1989 Hepatitis C Screening 1989 Lipid Screening 1989 Hepatitis B vaccine (0-59 yrs) (1) 1990 Tdap adult 1990 Tetanus vaccine 1990 Zoster vaccine (1 of 2) 2021 Covid-19 Vaccine (1 - season) 2023 Influenza (Flu) vaccine (1 o f 1 - Influenza standard series) 04/18/2024 Care Teams Formwork Carpenter Relationship Specialty Start Date End Date Edmundo Gillespie MD [address] [place] [id number] PCP - General Family Medicine 09/26/23
--- OUTSIDE RECORDS SUMMARY | 2024-03-31 14:58 | XMS_ITS | Clinical Summary ---
Author Organization [facility] Address [address] [place] [address] Care Team Providers Care Drier Belt Conveyor Name Role Phone Unavailable Primary Care Provider Unavailabl e Social History Tobacco Use Types Packs/Day Years Used Date Smoking Tobacco: Never Assessed Sex and Gender Information Value Date Recorded Sex Assigned at Not on file Gender Identity Not on file Sexual Orientation Not on file Plan of Treatment Health Maintenance Due Date Last Done Comments Hepatitis B Vaccine (1 of 3 - 19+ 3-dose series) 10/09 COVID-19 Vaccine (2022- season) 2023 Hepatitis C Screen Completed 12/25/2022 Procedures Procedure Name Priority Date/Time Associated Diagnosis Comments HEPATITIS C AB W REFLEX TO HCV RNA BY PCR Routine 12/25/2022 10:00 EDT from Last 3 Months or Most Recently Relevant to Health Maintenance Results * HEPATITIS C AB W REFLEX TO HCV RNA BY PCR (12/25/2022 10:00 EDT) Hep C Antibody Negative Negative 12/27/2022 9:38 EDT [facility] Blood VENOUS BLOOD / Unknown 12/25/2022 10:00 EDT 12/26/2022 17:52 EDT Provider Outr Resulting Lab CHEMISTRY & BLOOD GAS ORDERABLES [facility] [address] [place] [address] from Last 3 Months or Most Recently Relevant to Health Maintenance
--- OUTSIDE RECORDS SUMMARY | 2024-03-31 14:58 | XMS_ITS | Encounter Summary ---
Author Organization [facility] Address [facility] [place] [address] Care Team Providers Care Business Support Coordinator Name Role Phone Marisol Orona SUE Primary Care Provider Encounter Details Date Type Department Care Team (Late st Contact Info) Description 05/18/2011 Orders Only [place] [address] Jaron Moses MD [facility] [place] [address] Social History Tobacco Use Types Packs/Day Years [...] Associated Diagnosis Comments FILM LIBRARY STORAGE ONLY DX HAND Routine 05/18/2011 7:30 PM EDT documented in this encounter Results * FILM LIBRARY- STORAGE ONLY DX HAND (05/18/2011 7:30 PM EDT) 05/18/2011 7:30 PM EDT Narrative RAD - 12/23/2013 12:12 PM EDT This is a non-reportable exam. Procedure Note Andrea Currie - 12/23/2013 This is a non-reportable exam. Jaron Moses MD [facility] FILM LIBRARY ORD ERABLES RAD [address] [place] [address] documented in this encounter Visit Diagnoses Not on filedocumented in this encounter Care Teams Business Support Coordinator Relationship Specialty Start Date End Date Marisol Orona APRN [address] [place] [address] PCP - General 07/10/10 08/17/18 documented as of this encounter
--- OUTSIDE RECORDS SUMMARY | 2024-03-31 14:58 | XMS_ITS | Encounter Summary ---
Author Organization [facility] Address [facility] [place] [address] Care Team Providers Care Traveling Missionary Name Role Phone Malini Oronaobie Rivera APRN Primary Care Provider Reason for Visit * Reason Comments Left Hand Pain L hand lacerations/f x, doi 05/18/11 Encounter Details Date Type Department Care Team (Late st Contact Info) Description 05/30/2011 8:40 AM EDT Office [place] [address] Varun Simental PA [facility] [place] [address] Finger amputation, traumatic, left ring, DOI may [...] Progress Notes * Varun Simental PA - 05/30/2011 9:55 AM EDT DATE OF SERVICE: 05/30/2011 ATTENDING PHYSICIAN: Lenora Holliday presents for followup of amputation just distal to the DIP of the left ring finger and lacerations of the index and long fingers. He was seen in the emergency department by Dr. Abdon Hernandez on 05/18/2011. He suffered an injury secondary to a table saw, seen in a local emergency department, where his index and long finger lacerations were sutured without difficulty and he was sent to [facility] for Evaluation and treatment of his ring finger injury. He is here today for followup of that injury. He is doing well. He denies fevers, chills, nausea, vomiting, numbness, or tingling. His dressing has stayed on since his last visit. His pain is essentially minimal at worst and is quite well tolerated. He did have a reaction to Keflex manifested by mouth sores. He was seen in a local emergency department, where his wounds were examined. No untoward signs or complications were seen. He was discontinued on his antibiotics and not restarted on a replacement. Today, his dressings were down. His incision is healing beautifully with no evidence of complication or infection. There is absorbable sutures in the ring finger and nylon in the index and long finger. ASSESSMENT: He is now two weeks status post amputation at the level of the distal phalanx just proximal to the germinal matrix. This is healing beautifully. Regarding his other lacerations, these are healing kindly as well. PLAN: Plan today is to remove all of his nylon sutures and put a new dressing on his ring finger. I will see him back in two weeks for followup. At which point, we may begin a course of therapy for stump modification, edema control, desensitization, and range of motion. He understands and agrees. His questions are answered and he will return. documented in this encounter Plan of Treatment Not on file documented as of this encounter Visit Diagnoses Diagnosis Finger amputation, traumatic, left ring, DOI may 28- Primary Traumatic amputation of other finger(s) (complete) (partial), without mention of complication documented in this encounter Care Teams Traveling Missionary Relationship Specialty Start Date End Date Marisol Orona APRN [address] [place] [address] PCP - General 07/10/10 08/17/18 documented as of this encounter
[2024-03-31 15:08] LABS: Abs Immature Grans 0.01 10^3/uL (0.0-0.06); Absolute Basophil Count 0.03 10^3/uL (0.0-0.2); Absolute Eosinophil Count 0.16 10^3/uL (0.0-0.7); Absolute Lymphocyte Count 0.52 10^3/uL (1.2-3.4); Absolute Monocyte Count 0.38 10^3/uL (0.1-0.8); Absolute Neutrophil Count 3.68 10^3/uL (1.2-6.7); Basophils % 0.6 %; Eosinophils % 3.3 %; HCT 40.4 % (40.0-50.0); HGB 13.1 g/dL (13.5-17.5); Immature Grans % 0.2 %; Lymphocytes % 10.9 %; MCH 28.9 pg (27.0-33.0); MCHC 32.4 % (32.0-36.0); MCV 89 fL (80-95); MPV 9.8 fL (8.0-11.0); Monocytes % 7.9 %; Neutrophils % 77.1 %; Platelet Count 255 10^3/uL (130-400); RBC 4.53 10^6/uL (4.36-5.78); RDW 12.4 % (11.8-14.1); RDW-SD 40.9 fL; WBC 4.78 10^3/uL (4.4-10.8)
[2024-03-31 17:52] LABS: ALT 17 U/L (16-63); AST 11 U/L (15-37); Albumin 3.9 g/dL (3.4-5.0); Alkaline Phosphatase 49 U/L (46-116); BUN 20 mg/dL (7-18); Bilirubin, Total 0.31 mg/dL (0.2-1.0); CREATININE 1.3 mg/dL (0.70-1.30); Calcium 9.4 mg/dL (8.5-10.1); Chloride 104 mmol/L (98-107); Glucose 100 mg/dL (74-106); Potassium 3.8 mmol/L (3.5-5.1); Sodium 142 mmol/L (136-145); Total Protein 7.4 g/dL (6.4-8.2)
[2024-04-05 17:13] LABS: JC Virus DNA, QN PCR NOT DETECTED; JC Virus DNA, QN PCR NOT DETECTED Log IU/mL; Source PLASMA
== END 2024-03-31 14:56 | disposition home or self-care (01) ==
LOC: LBO 14:57
PROVIDERS: PCP Family Medicine; Visit Provider Psychiatry & Neurology Neurology
DX: G35 Multiple sclerosis (principal)
CPT/HCPCS: 36415; 80053; 87799; 85025

== ENCOUNTER 2024-05-05 02:11 | Outpatient (CLI) | payer BC, SELFPAY ==
--- NOTE | 2024-05-05 06:30 | DI.MRI_ITS ---
Exam(s) MR BRAIN WO EXAM: MR BRAIN WO CLINICAL HISTORY: f/u stable ms,g35 TECHNIQUE: Multiplanar multisequence MRI of the brain was performed. COMPARISON: MR MR BRAIN WO from 03/26/2022 FINDINGS: CEREBRAL PARENCHYMA: There is no evidence of intracranial hemorrhage, mass effect, or shift of midline structures. There are no extra-axial fluid collections. Ventricles are not enlarged or shifted. Small focus of signal abnormality in the lateral left cerebellar hemisphere is unchanged prior MRI sc an March 2022. Also unchanged is small focus of signal abnormality in left side of the lower jo ann. No new findings evident in the jo ann and midbrain and thalami. There is relative stability in the si ze and number of plaques in the [place] and supra ventricular white matter. There is 1 new small plaque the white matter adjacent to the atrium of the right lateral ventricle which measures 4 x 3 mm and w hich exhibits some restricted diffusion on DWI. PITUITARY GLAND: No mass nor parasellar abnormality. No obvious abnormality in the cavernous sinuses. FLOW VOIDS: The expected flow void are noted. No evidence of obvious aneurysm nor obvious vascular ma lformation. PARANASAL SINUSES: The visualized paranasal sinuses appear unremarkable. No obvious finding ORBITS: No obvious findings. IMPRESSION: Relative stability when compared to the prior MRI scan of March 2022. There appears to be 1 new add itional small 4 x 3 mm plaque in the white matter adjacent to the atrium of the right lateral ventric le. This small plaque does exhibit mild restricted diffusion on DWI. DATA REPOSITORY:
== END 2024-05-05 02:31 ==
LOC: DI 02:12
PROVIDERS: PCP Student in an Organized Health Care Education/Training Program; Visit Provider Psychiatry & Neurology Neurology
DX: G35 Multiple sclerosis (principal)
CPT/HCPCS: 70551

== ENCOUNTER 2025-01-06 15:07 | Outpatient (REF) | payer BC, SELFPAY ==
[2025-01-06 16:15] LABS: BUN 18 mg/dL (7-18); CREATININE 1.1 mg/dL (0.70-1.30); Calcium 9.2 mg/dL (8.5-10.1); Chloride 108 mmol/L (98-107); Estimated GFR 80.27 (mL/min/1.73m2); Glucose 85 mg/dL (74-106); Potassium 4.6 mmol/L (3.5-5.1); Sodium 142 mmol/L (136-145)
[2025-01-06 16:23] LABS: COMMENT (LAB VIEW ONLY) 173.85 mg/dL; Microalb ug/mg Crea 5.2 ug/mg Cr
== END 2025-01-06 15:08 | disposition home or self-care (01) ==
LOC: NCHCN 15:07
PROVIDERS: PCP Student in an Organized Health Care Education/Training Program; Visit Provider Student in an Organized Health Care Education/Training Program
DX: I10 Essential (primary) hypertension (principal)
CPT/HCPCS: 80048; 82043; 82570

== ENCOUNTER 2025-06-15 10:54 | Outpatient (CLI) | payer BC, SELFPAY ==
[2025-06-15 11:16] LABS: Abs Immature Grans 0.01 10^3/uL (0.0-0.06); HCT 38.1 % (40.0-50.0); HGB 12.7 g/dL (13.5-17.5); Immature Grans % 0.2 %; MCH 29.1 pg (27.0-33.0); MCHC 33.3 % (32.0-36.0); MCV 87 fL (80-95); MPV 9.5 fL (8.0-11.0); Platelet Count 244 10^3/uL (130-400); RBC 4.36 10^6/uL (4.36-5.78); RDW 12.4 % (11.8-14.1); RDW-SD 40.2 fL; WBC 4.12 10^3/uL (4.4-10.8)
[2025-06-20 02:01] LABS: JC Virus DNA, QN PCR NOT DETECTED; JC Virus DNA, QN PCR NOT DETECTED Log IU/mL
== END 2025-06-15 10:55 | disposition home or self-care (01) ==
LOC: LBO 10:55
PROVIDERS: PCP Student in an Organized Health Care Education/Training Program; Visit Provider Psychiatry & Neurology Neurology
DX: G35.D Multiple sclerosis, unspecified (principal)
CPT/HCPCS: 36415; 87799; 85025